=== PATIENT | female | born 1965 | race Caucasian/White ===

== ENCOUNTER 2017-10-11 20:55 | Emergency (ER) | payer MEDICAID ==
[2015-08-04 01:44] VITALS: BMI 17.6
[~2017-10-11 20:55] MED LIST: ELAVIL10 MG PO; GABAPENTIN100 MG PO; HYDROCHLOROTH12.5 M1 PO; IBUPROFEN800 MG PO; KENALOG IN ORABA5 GM TOPICAL; LIPITOR10 MG PO; METOPROLOL TART50 MG PO; PROZAC20 MG PO; REMERON15 MG PO
[2017-10-11 21:44] LABS: BASOPHILS 0.4 % (0-2); EOSINOPHILS 0.9 % (0-7); HEMOGLOBIN 16.5 g/dL (12-16); IMMATURE GRANULOCYTES 0.1 % (0-5); LYMPHOCYTES 24.3 % (15-50); MCH 37.6 pg (26.0-34.0); MCHC 38.4 g/dL (31.0-37.0); MCV 97.9 fL (80.0-100.0); MONOCYTES 15.5 % (2-11); NEUTROPHILS 58.8 % (40-80); RBC 4.39 10x6/uL (4.00-5.40); RDW 13.6 % (11.5-14.5); WBC 6.8 10x3/uL (4.8-10.8)
[2017-10-11 21:52] LABS: PLATELET COUNT 134 10x3/uL (130-400)
[2017-10-11 21:53] LABS: APPEARANCE CLEAR (CLEAR); BILIRUBIN NEGATIVE (NEGATIVE); COLOR STRAW (YELLOW); GLUCOSE NEGATIVE (NEGATIVE); KETONE NEGATIVE (NEGATIVE); NITRITE NEGATIVE (NEGATIVE); PROTEIN NEGATIVE (NEGATIVE); SPECIFIC GRAVITY 1.005 (1.005-1.020); UROBILINOGEN NORMAL (NORMAL)
[2017-10-11 21:54] LABS: ALBUMIN 2.7 g/dL (3.4-5.0); BILIRUBIN - TOTAL 2.84 mg/dL (0.2-1.3); CARBON DIOXIDE 19.9 mmol/L (21.0-32.0); CHLORIDE - SERUM 86 mmol/L (98-107); LIPASE 155 U/L (73-393); POTASSIUM - SERUM 3.4 mmol/L (3.5-5.1); SODIUM 122 mmol/L (136-145); eGFR NON AFRICAN AMERICAN > 90 mL/min (90-120)
[2017-10-11 22:21] LABS: ALKALINE PHOSPHATASE 304 U/L (46-116); ALT (SGPT) 178 U/L (10-68); CALC OSMOLALITY 249 mosm/kg (275-300); CREATININE - SERUM 0.4 mg/dL (0.6-1.3); PROTEIN - SERUM 6.7 g/dL (6.4-8.2); UREA NITROGEN 6 mg/dL (7-18)
[2017-10-11 22:22] LABS: CALCIUM 7.3 mg/dL (8.5-10.1); GLUCOSE 211 mg/dL (74-106)
[2017-10-12 00:07] LABS: PROTIME 12.8 SECONDS (11.6-15.0)
[2017-10-12 00:20] LABS: MAGNESIUM - SERUM 2.1 mg/dL (1.8-2.4); THYROID STIMULATING HORMONE 2.41 uIU/mL (0.36-3.74)
[2017-10-12 00:59] LABS: CREATININE - SERUM 0.4 mg/dL (0.6-1.3); eGFR NON AFRICAN AMERICAN > 90 mL/min (90-120)
[2017-10-12 01:00] LABS: GLUCOSE 112 mg/dL (74-106)
[2017-10-12 01:01] LABS: CALC OSMOLALITY 285 mosm/kg (275-300); POTASSIUM - SERUM 3.9 mmol/L (3.5-5.1); SODIUM 144 mmol/L (136-145); UREA NITROGEN 8 mg/dL (7-18)
[2017-10-12 01:02] LABS: CALCIUM 7.8 mg/dL (8.5-10.1); CARBON DIOXIDE 31.5 mmol/L (21.0-32.0); CHLORIDE - SERUM 105 mmol/L (98-107)
[2017-10-12 01:03] LABS: ALKALINE PHOSPHATASE 291 U/L (46-116); ALT (SGPT) 164 U/L (10-68); BILIRUBIN - TOTAL 1.74 mg/dL (0.2-1.3)
[2017-10-12 01:04] LABS: ALBUMIN 3.1 g/dL (3.4-5.0); PROTEIN - SERUM 6.2 g/dL (6.4-8.2)
[2017-10-13 17:13] LABS: HEPATITIS C ANTIBODY 0.1 (0.0-0.9)
== END 2017-10-12 03:06 | disposition home or self-care (01) ==
LOC: D.ER 20:55
PROVIDERS: Family Medicine; Nurse Practitioner Family
DX: R10.9 Unspecified abdominal pain (principal); E87.1 Hypo-osmolality and hyponatremia; R73.9 Hyperglycemia, unspecified; K75.9 Inflammatory liver disease, unspecified